=== PATIENT | male | born 1960 | race Caucasian/White ===

== ENCOUNTER → 2016-12-19 | Outpatient (CLI) | payer BC, MEDICARE ==
[2016-12-19 14:37] LABS: PROTHROMBIN TIME 16.9 SEC (11.4-15.4)
== END ==
LOC: LAB 14:10
DX: I74.9 Embolism and thrombosis of unspecified artery (principal); Z51.81 Encounter for therapeutic drug level monitoring; Z79.01 Long term (current) use of anticoagulants
CPT/HCPCS: 36415; 85610

== ENCOUNTER → 2016-12-23 | Outpatient (CLI) | payer SELFPAY ==
[2016-12-23 10:39] LABS: PROTHROMBIN TIME 20.2 SEC (11.4-15.4)
== END ==
LOC: LAB 10:08
DX: Z51.81 Encounter for therapeutic drug level monitoring (principal); Z79.01 Long term (current) use of anticoagulants
CPT/HCPCS: 36415; 85610

== ENCOUNTER → 2016-12-26 | Outpatient (CLI) | payer BC, MEDICARE ==
[2016-12-26 10:44] LABS: PROTHROMBIN TIME 22.1 SEC (11.4-15.4)
== END ==
LOC: LAB 10:18
PROVIDERS: ATTEND Internal Medicine Cardiovascular Disease
DX: I74.9 Embolism and thrombosis of unspecified artery (principal); Z51.81 Encounter for therapeutic drug level monitoring; Z79.01 Long term (current) use of anticoagulants
CPT/HCPCS: 36415; 85610